=== PATIENT | male | born 1945 | race Caucasian/White ===

== ENCOUNTER 2018-03-11 13:17 | Inpatient (IN) | payer MEDICARE ==
--- NOTE | 2018-03-12 15:14 | HP ---
HISTORY OF PRESENT ILLNESS: Mr. Kennedy is referred to us by Dr. Ozuna, his primary care and __ ___ with low back pain. His evaluation with Dr. Ozuna included kyphoplasty of a compression fra cture and facet injections without permanent relief. The back pain for which he has been sent as fro m L3 to the sacrum, there is no leg pain. There is foot numbness only at night and this goes away wi th repositioning. There is no incontinence. The back pain is starting to prevent activities. He mares s had therapy, medications, and injections over the years, but the pain continues. REVIEW OF SYSTEMS: A 10-point review of systems has been completed and is negative other than stated above in the HPI. PAST MEDICAL HISTORY: Hypertension, hypercholesterolemia, and diabetes. PAST SURGICAL HISTORY: Cholecystectomy in 2015, right shoulder in 2014, left shoulder in 2013. FAMILY HISTORY: Father is , diagnosed with a stroke. Mother is , diagnosed with str juanita. Daughter is alive. SOCIAL HISTORY: The patient is a nonsmoker, does not drink alcohol or use any other illicit drugs. Lives with his spouse. with 2 children. MEDICATIONS: Invokamet, doxazosin, pravastatin, losartan, Bystolic, glyburide, Januvia, pioglitazone . ALLERGIES: No known drug allergies. PHYSICAL EXAMINATION: CONSTITUTION: The patient is alert and oriented, no sign of visible distress. RESPIRATORY: Normal work of breathing on room air. NEUROLOGIC: Cranial nerves are intact. Cerebellar exam: There is no truncal ataxia. Gait and stat ion: Decreased arm swing on both sides, left worse than right. Motor exam: There is normal strengt h in the iliopsoas, quadriceps, hamstrings, anterior tibialis, extensor hallucis longus, gastroc and toe flexors. Sensory exam: There is no dermatomal sensory loss in the L1, L2, L3, L4, L5, or S1. L ower extremity exam, single leg raise. Reflex exam, slightly more prominent on the left, overa ll hypoactive. Spinal exam nontender today. IMAGING: X-rays, L3-L4 listhesis, L3 pars defect. MRI, left L3-L4 foraminal disk, L3-L4 listhesis a nd pars defect, some right L5-S1 foraminal disease. ASSESSMENT AND PLAN: Spondylolisthesis, lumbar region. Dr. Montano has offered laminectomy and tr ansforaminal lumbar interbody fusion at L3-L4. Informed consent, we have discussed the indications, risks, benefits, alternatives, and expected results from surgery. The risks discussed included, but were not limited to bleeding, infection, CSF leak, nerve damage, weakness, incontinence, cauda equina injury, arachnoiditis, paralysis, ventilator dependence, nerve damage, weakness, wheelchair dependen t, loss of vision, hardware placement, cardiopulmonary complications of anesthesia or , long-ter m complications discussed included, but were not limited to degradation of surrounding disks and the need for further surgery. He understands the risks and is willing to proceed with surgery.
[2018-03-17] MEDS ORDERED: CEFAZOLIN/Water 2 GM/20 ML SYRINGE ONE (06:21)
[2018-03-17] MEDS ORDERED: Thrombin 5000 UNITS/5 ML VIAL ONE (06:27)
[2018-03-17] MEDS ORDERED: Bupivacaine HCl 0.5%/Epinephrine 1:200,000/PF 30 ml Vial ONE (06:27)
[2018-03-17] MEDS ORDERED: Sodium Chloride 0.9% 20 ML ONE (06:28)
[2018-03-17] MEDS ORDERED: Fentanyl 100 MCG/2 ML VIAL ONE ×2 (06:58→11:57)
[2018-03-17] MEDS ORDERED: Acetaminophen/Codeine 30-300mg Tablet PO PRN (11:08)
[2018-03-17] MEDS ORDERED: Promethazine 25 MG TAB PO PRN (11:08)
[2018-03-17] MEDS ORDERED: Mag-Al 1200 mg/1200 mg/30 ML UDCUP PO PRN (11:08)
[2018-03-17] MEDS ORDERED: Fleet Enema 133 ML BOT PR PRN (11:08)
[2018-03-17] MEDS ORDERED: diphenhydrAMINE 25 MG CAP PO PRN (11:08)
[2018-03-17] MEDS ORDERED: Milk Of Magnesia 30 ML UDCUP PO PRN (11:08)
[2018-03-17] MEDS ORDERED: diphenhydrAMINE 50 MG/ML VIAL IVP PRN (11:08)
[2018-03-17] MEDS ORDERED: Bisacodyl 10 MG SUPP PR PRN (11:08)
[2018-03-17] MEDS ORDERED: Ondansetron HCl/PF 4 MG/2 ML Vial IVP PRN (11:08)
[2018-03-17] MEDS ORDERED: tiZANidine HCl 4 MG TAB PO PRN (11:08)
[2018-03-17] MEDS ORDERED: Zolpidem Tartrate 5 MG TAB PO PRN (11:08)
[2018-03-17] MEDS ORDERED: Acetaminophen 650 MG Suppository PR PRN (11:08)
[2018-03-17] MEDS ORDERED: Promethazine HCl 25 MG/ML VIAL IM PRN ×2 (11:08→11:21)
[2018-03-17] MEDS ORDERED: Acetaminophen 325 MG TAB PO PRN (11:08)
[2018-03-17] MEDS ORDERED: HYDROmorphone 2 MG/ML VIAL SLOW IVP PRN (11:21)
[2018-03-17] MEDS ORDERED: Promethazine HCl 25 MG/ML VIAL SLOW IVP PRN (11:21)
[2018-03-17] MEDS ORDERED: Meperidine HCl/PF 25 MG/ML VIAL SLOW IVP PRN (11:21)
--- NOTE | 2018-03-17 11:27 | OP ---
DATE OF SURGERY: 03/17/2018 SURGEON: Melanie Montano M.D. TACTICAL DEBRIEFER OFFICER: Eva Maciel PA-C. PREOPERATIVE INDICATION: Treat pain, prevent neurological deterioration, treat spinal instability. PREOPERATIVE DIAGNOSES: Bilateral L3 pars fractures, chronic back pain, left-sided foraminal stenosi s, and L3 radiculopathy. POSTOPERATIVE DIAGNOSES: Bilateral L3 pars fractures, chronic back pain, left-sided foraminal stenos is, and L3 radiculopathy. OPERATIVE PROCEDURE: Decompressive laminectomy, complete facetectomy, and wide foraminotomy to decom press the L3 nerve root, transforaminal lumbar interbody arthrodesis, placement of intervertebral bio mechanical device, pedicle screw and alice instrumentation, posterolateral arthrodesis L3-L4, local mor selized autograft, morselized allograft. PREOPERATIVE MEDICATION: Ancef 2 grams IV. DRAIN NUMBER: One. DRAIN TYPE: 10 [place]vian Barrera. OPERATIVE DICTATION: The patient was brought to the operating room. General endotracheal anesthesia was induced. The patient was positioned prone on the Jf frame with the appropriate padding for the chest and hips. A lateral fluoro radiograph was used to plan our incision. The lumbar skin was sterilely prepped and draped. We opened with a 10-blade knife and controlled bleeding with bipolar and monopolar cautery. We used monopolar cautery to dissect through subcutaneous tissues to the thor acodorsal fascia. We incised the fascia in the midline and reflected the paraspinal muscles off the spinous process and lamina of L3-L4. A lateral fluoro radiograph confirmed the levels upon which we were operating. We carried our dissection over the facet joints at L2-3 and L3-4 to identify the L3 and L4 transverse processes. A self-retaining retractor was placed. We turned our attention to deco mpression. With Adson and Kerrison rongeurs, we fashioned our laminectomy at L3 and L4. We widened our laminectomy defect until we were flushed with the pedicles. We paid particular attention to the left L3 foramen. Here the spondylolisthesis resulted in significant compression of the L3 nerve root . We performed a complete facetectomy at L3-4. We removed bone from over the foramen. We removed y ellow ligament, and at the completion of our decompression, the L3 nerve root was no longer compresse d. We irrigated copiously with bacitracin irrigation. We accessed the intervertebral space at L3-4 through the foramen and incised the disk space with an 11-blade knife. We removed disk contents usin g curettes and rongeurs. We brought a series of bone rasps into the field and measured the height of the interspace to 11 mm. We prepared the endplates for grafting using curettes. An 11-mm PEEK inte rvertebral graft was brought into the field. This was loaded with demineralized bone matrix and mors elized autograft. The autograft was from our laminectomy bone and facetectomy bone that was cleaned of all soft tissue attachments morselized on the back table and added to demineralized bone matrix as our fusion substrate. The PEEK graft was advanced into the interspace under radiographic guidance t o the appropriate depth. We turned our attention to pedicle screw instrumentation. Using bony anatomic landmarks, palpation of the medial portion of the pedicles and lateral fluoro rad iograph as a guide, we chose entry points for pedicle screws at L3 and L4 bilaterally. We advanced t he entry points through the pedicles into the vertebral bodies at the bone awl and then we tapped our trajectories with a threaded tap. We probed our trajectories and found it completely encased in bon e. We placed 6.5 mm pedicle screws at L3 and L4 bilaterally. We generated a 360-degree image set wi th our isocentric C-arm confirming adequate position of our pedicle screw instrumentation. We irriga viktor with bacitracin irrigation. We decorticated the transverse processes of L3 and L4 bilaterally. We left demineralized bone matrix and morselized autograft over the decorticated bone as our posterol ateral fusion substrate. Rods were brought down in the screw heads and we tightened caps over the ro ds. Before final tightening, we compressed across the interspace to keep our interbody graft in plac e. Using a [id number] mechanism, we ensured adequate torque on the caps. We tunneled the drain inferiorly through a separate stab incision. We irrigated the center of the wound. We treate d the wound with vancomycin powder and we closed in anatomic layers over the drain. This was a clean case and no contamination.
[2018-03-17] MEDS ORDERED: Morphine 4 MG/ML VIAL SLOW IVP PRN (12:00)
[2018-03-17 13:56] VITALS: BMI 25.4
[2018-03-17] MEDS: CEFAZOLIN/Water 2 GM/20 ML SYRINGE SLOW IVP SCH (16:11)
[2018-03-17] MEDS: Acetaminophen/Codeine 30-300mg Tablet PO PRN (16:15)
--- NOTE | 2018-03-17 18:22 | PDOC.PN ---
- Subjective Encounter Start Date: 03/17/18 Encounter Start Time: 16:00 Pt seen for management of medical comorbidities, including hypertension. Denies chest pain, shortness of breath, fevers or chills. - Objective MAR Reviewed: Yes Vital Signs & Weight: Vital Signs (12 hours) Temp Pulse Resp BP Pulse Ox 03/17/18 12:30 98.0 F 78 18 134/67 97 Weight Weight 172 lb Additional Labs: Labs reviewed by me Phys Exam - Physical Examination Constitutional: NAD HEENT: moist MMs Neck: supple Respiratory: clear to auscultation bilateral Cardiovascular: RRR Gastrointestinal: soft s/p L spine surgery Neurological: moves all 4 limbs Psychiatric: normal affect Dx/Plan (1) HTN (hypertension) Code(s): I10 - ESSENTIAL (PRIMARY) HYPERTENSION Status: Chronic Comment: Controlled. Resume home medications, monitor vital signs and titrate antihypertensives as needed. PRN IV hydralazine for blood pressure spikes. (2) DM2 (diabetes mellitus, type 2) Status: Chronic Comment: start accuchecks, insulin sliding scale. (3) Dyslipidemia Code(s): E78.5 - HYPERLIPIDEMIA, UNSPECIFIED Status: Chronic Comment: continue statin - Plan * . Review of Systems - Review of Systems Respiratory: negative: Cough, Shortness of Breath, SOB with Excertion, Pleuritic Pain, Wheezing Cardiovascular: negative: chest pain, palpitations, orthopnea, paroxysmal nocturnal dyspnea, edema, light headedness - Medications/Allergies Allergies/Adverse Reactions: Allergies Allergy/AdvReac Type Severity Reaction Status Date / Time No Known Allergies Allergy Verified 03/11/18 17:47 Medications: Current Medications Acetaminophen (Tylenol) 650 mg PO Q4H PRN PRN Reason: Headache/Fever or Pain Acetaminophen (Tylenol) 650 mg NV Q4H PRN PRN Reason: Headache/Fever or Pain Acetaminophen/Codeine Phosphate (Tylenol #3) 1 tab PO Q3H PRN PRN Reason: Mild Pain (1-3) Acetaminophen/Codeine Phosphate (Tylenol #3) 2 tab PO Q3H PRN PRN Reason: Moderate Pain (4-6) Last Admin: 03/17/18 16:15 Dose: 2 tab Acidophilus (Floranex) 1 tab PO HS SAMARA Al Hydroxide/Mg Hydroxide (Maalox) 30 ml PO Q4H PRN PRN Reason: Indigestion Alogliptin Benzoate (Alogliptin) 25 mg PO QPM [facility]ARA Bisacodyl (Dulcolax) 10 mg NV Q12H PRN PRN Reason: Constipation Cefazolin Sodium (Ancef) 2 gm SLOW IVP 0000,1600 SAMARA Last Admin: 03/17/18 16:11 Dose: 2 gm Diphenhydramine HCl (Benadryl) 25 mg IVP Q6H PRN PRN Reason: Itching Diphenhydramine HCl (Benadryl) 25 mg PO Q6H PRN PRN Reason: Itching Doxazosin Mesylate (Cardura) 4 mg PO QAM [facility]ARA Glimepiride (Amaryl) 4 mg PO QPM [facility] Sodium Chloride (Normal Saline 0.9%) 1,000 mls @ 75 mls/hr IV .[id number] [facility] Losartan Potassium (Cozaar) 100 mg PO QPM [facility] Magnesium Hydroxide (Milk Of Magnesium) 30 ml PO Q12H PRN PRN Reason: Constipation Morphine Sulfate (Morphine) 2 mg SLOW IVP Q1H PRN PRN Reason: Moderate Breakthrough Pain Morphine Sulfate (Morphine) 4 mg SLOW IVP Q1H PRN PRN Reason: SEVERE BREAKTHRU PAIN Multivitamins/Zinc (Stress 600 With Zinc) 1 tab PO QPM [facility] Nebivolol (Bystolic) 2.5 mg PO QAM [facility] (Canagliflozin/Metformin Hcl [ Invokamet] 1 Tab) 0 tab PO BID [facility] (Phytonadione (Vit K1) [Vitamin K] 100 Mcg) 100 mcg PO QPM [facility] Ondansetron HCl (Zofran) 4 mg IVP DAILYPRN PRN PRN Reason: Nausea Pioglitazone HCl (Actos) 30 mg PO DAILY [facility] Pravastatin Sodium (Pravachol) 20 mg PO QPM [facility] Promethazine HCl (Phenergan) 12.5 mg PO Q4H PRN PRN Reason: Nausea/Vomiting Promethazine HCl (Phenergan) 12.5 mg IM Q4H PRN PRN Reason: Nausea/Vomiting Sodium Biphosphate/Sodium Phosphate (Fleet Enema) 133 ml NV ONE PRN PRN Reason: Constipation Stop: 03/18/18 11:09 Sodium Chloride (Flush - Normal Saline) 10 ml IVF PRN PRN PRN Reason: Saline Flush Tamsulosin HCl (Flomax) 0.4 mg PO 0600 [facility]ARA Tizanidine HCl (Zanaflex) 4 mg PO Q6H PRN PRN Reason: Muscle Spasm Zolpidem Tartrate (Ambien) 5 mg PO HSPRN PRN PRN Reason: Insomnia
[2018-03-17] MEDS ORDERED: hydrALAZINE 20 MG/ML VIAL SLOW IVP PRN (18:24)
[2018-03-17] MEDS: Sodium Chloride 0.9% 1,000 ML IV SCH (19:58)
[2018-03-17] MEDS ORDERED: Lactinex Tablet PO SCH (21:00)
[2018-03-17] MEDS ORDERED: Pravastatin Sodium 20 MG TAB PO SCH (21:00)
[2018-03-17] MEDS ORDERED: METFORMIN HCL PO SCH (21:00)
[2018-03-17] MEDS ORDERED: Stress 600 With Zinc 1 TAB PO SCH (21:00)
[2018-03-17] MEDS ORDERED: Glimepiride 2 MG TAB PO SCH (21:00)
[2018-03-17] MEDS ORDERED: CANAGLIFLOZIN PO SCH (21:00)
[2018-03-18] MEDS: CEFAZOLIN/Water 2 GM/20 ML SYRINGE SLOW IVP SCH
[2018-03-18] MEDS: Sodium Chloride 0.9% 1,000 ML IV SCH (03:00)
[2018-03-18] MEDS ORDERED: Tamsulosin HCl 0.4 MG CAP PO SCH (06:00)
[2018-03-18] MEDS ORDERED: Pioglitazone HCl 15 MG TAB PO SCH (09:00)
[2018-03-18] MEDS ORDERED: Doxazosin Mesylate 4 MG TAB PO SCH (09:00)
[2018-03-18] MEDS ORDERED: Nebivolol HCl 2.5 MG TAB PO SCH (09:00)
[2018-03-18] MEDS: Acetaminophen/Codeine 30-300mg Tablet PO PRN (09:49)
--- NOTE | 2018-03-18 11:22 | PRG ---
DATE OF SERVICE: 03/18/2018 I saw Mr. Erazo this morning. He is 1 day out from decompression fusion in the lumbar spine. We l eft a drain in place due to easy bruisability and need for vitamin K treatment at home. Overnight, Susanna Erazo has not had any complaints. This morning vital signs are stable. There is good neurologi ross function in lower extremities. I do not see a total output from the drain in our computer system and I will wait for that before deciding whether to remove the drain. If the drain output is less t gambino 5 mL an hour on average for at least 6 hours, it can be removed. Once it out and he is safe for activities of daily living, he can be discharged home. Mr. Erazo wants to go today and I am unsure whether this will happen by the afternoon or whether will need to wait until tomorrow.
[2018-03-18 13:27] VITALS: BP 148/75; TEMP 98.4
--- NOTE | 2018-03-18 16:05 | PDOC.PN ---
- Subjective Encounter Start Date: 03/18/18 Encounter Start Time: 10:03 Subjective: no complaints - Objective MAR Reviewed: Yes Vital Signs & Weight: Vital Signs (12 hours) Temp Pulse Resp BP Pulse Ox 03/18/18 11:49 98.4 F 70 16 148/75 H 92 L 03/18/18 08:25 98.3 F 82 12 90 L 03/18/18 08:00 98.3 F 82 12 137/70 90 L 03/18/18 04:38 98.5 F 76 19 118/65 98 Weight Weight 172 lb I&O: 03/17/18 03/18/18 03/19/18 06:59 06:59 06:59 Intake Total 1862.5 Balance 1862.5 Additional Labs: Accuchecks 03/17/18 22:12 POC Glucose 202 H Phys Exam - Physical Examination Neck: no JVD Respiratory: clear to auscultation bilateral Cardiovascular: RRR, no significant murmur Gastrointestinal: soft, positive bowel sounds Musculoskeletal: no edema Dx/Plan (1) DM2 (diabetes mellitus, type 2) Status: Chronic Comment: start accuchecks, insulin sliding scale. (2) Dyslipidemia Code(s): E78.5 - HYPERLIPIDEMIA, UNSPECIFIED Status: Chronic Comment: continue statin (3) HTN (hypertension) Code(s): I10 - ESSENTIAL (PRIMARY) HYPERTENSION Status: Chronic Comment: Controlled. Resume home medications, monitor vital signs and titrate antihypertensives as needed. PRN IV hydralazine for blood pressure spikes. - Plan doing well, DC today * .
--- NOTE | 2018-03-18 17:50 | DIS ---
DATE OF ADMISSION: 03/17/2018 DATE OF DISCHARGE: 03/18/2018 DISCHARGE DISPOSITION: Home. ADMITTING PHYSICIAN: Dr. Montano. FINAL DIAGNOSES: Bilateral L3 pars fractures, left-sided foraminal stenosis, L3 radiculopathy, hypertension, diabetes mellitus type 2 without complications, dyslipidemia. DISCHARGE MEDICATIONS: Januvia 100 mg q.p.m., Pravachol 20 mg q.p.m., pioglitazone 30 mg a day, Bystolic 2.5 mg a day, losartan 100 mg a day, Amaryl 4 mg a day, doxazosin 4 mg a day, invonkamet twice a day, tizanidine 4 mg q.8 hours p.r.n., Tylenol #3 with codeine q.6 hours p.r.n. ALLERGIES: No known drug allergies. PENDING AT THE TIME OF DISCHARGE: Nothing. CODE STATUS: FULL. HOSPITAL COURSE: The patient admitted by Dr. Montano and underwent surgery . Lencho was consulted for medical management. Today, patient was doing well, stable, was discharged home by Dr. Musa. Follow up with Dr. Montano per his recommendations. Follow up with his primary care per Dr. Montano's recommendations. [facility]
[2018-03-18] MEDS ORDERED: Losartan 25 MG TAB PO SCH (21:00)
[2018-03-18] MEDS ORDERED: Alogliptin 25 MG TAB PO SCH (21:00)
== END 2018-03-18 14:17 | disposition home or self-care (01) | DRG 460 ==
LOC: SURG A 03-17 06:02
PROVIDERS: ADMIT Neurological Surgery; ATTEND Neurological Surgery
PROC: 0SG0071 Fusion of Lumbar Vertebral Joint with Autologous Tissue Substitute, Posterior Approach, Posterior Column, Open Approach (ICD-10-PCS; principal; 2018-03-17)
PROC: 00NY0ZZ Release Lumbar Spinal Cord, Open Approach (ICD-10-PCS; 2018-03-17)
DX: M43.16 Spondylolisthesis, lumbar region (principal); G89.29 Other chronic pain; M54.16 Radiculopathy, lumbar region; I10 Essential (primary) hypertension; E11.9 Type 2 diabetes mellitus without complications; E78.5 Hyperlipidemia, unspecified; E78.00 Pure hypercholesterolemia, unspecified; Z90.49 Acquired absence of other specified parts of digestive tract
CPT/HCPCS: 36416; 76001; A4216; C1713; C1768; G8978-GP-CK; G8979-GP-CI; J0131; J0670; J3010; J3370; J3490

== ENCOUNTER 2018-03-11 17:08 | Outpatient (CLI) | payer MEDICARE ==
[2018-03-11 17:49] LABS: Hemoglobin 14.4 g/dL (14.0-18.0); Mean Corpuscular HGB CONC 32.9 g/dL (32.0-36.0); Mean Corpuscular Hemoglobin 31.4 pg (27.0-31.0); Mean Corpuscular Volume 95.4 fL (78.0-98.0); Mean Platelet Volume 7.5 fL (7.4-10.4); Platelet Count 291 thou/uL (130-400); RBC Distribution Width 12.9 % (11.5-14.5); Red Blood Cell (RBC) Count 4.58 mill/uL (4.70-6.10); White Blood Cell (WBC) Count 7.9 thou/uL (4.8-10.8)
[2018-03-11 17:57] LABS: PTT 26.4 SEC (22.9-36.1); Prothrombin Time 12.8 SEC (12.0-14.7)
== END 2018-03-11 17:09 | disposition home or self-care (01) ==
LOC: LABBT 17:08
PROVIDERS: ATTEND Neurological Surgery
DX: Z01.812 Encounter for preprocedural laboratory examination (principal); M43.16 Spondylolisthesis, lumbar region; M48.061 Spinal stenosis, lumbar region without neurogenic claudication
CPT/HCPCS: 85027; 85610; 85730